=== PATIENT | female | born 1955 | race Caucasian/White ===

== ENCOUNTER 2021-05-29 11:00 | Inpatient (IN) | payer BC ==
[~2021-05-29] VITALS: Ht 165.1 cm; Wt 83.9 kg
[2021-05-29 10:58] LABS: BASOPHILS % (AUTO) 0.4 % (0.0-5.0); EOSINOPHILS % (AUTO) 1.6 % (0.0-8.0); HEMATOCRIT 47.6 % (36-48); LYMPHOCYTES % (AUTO) 17.2 % (21.0-51.0); MEAN CORPUSCULAR HEMOGLOBIN 28.3 pg (27.0-33.0); MEAN CORPUSCULAR HGB CONC 32.1 g/dL (32.0-36.0); MONOCYTES % (AUTO) 8.4 % (3.0-13.0); NEUTROPHILS % (AUTO) 72.2 % (40.0-77.0); PLATELET COUNT (AUTO) 297 K/uL (130-400); RED BLOOD CELL COUNT(AUTO) 5.41 MIL/uL (4.00-5.50); RED CELL DISTRIBUTION WIDTH 13.1 % (11.0-15.5); WHITE BLOOD COUNT (AUTO) 9.6 K/uL (4.8-10.8)
[2021-05-29 11:01] LABS: APPEARANCE,URINE Clear (CLEAR); BILIRUBIN,URINE Negative (NEGATIVE); COLOR,URINE Yellow (YELLOW); GLUCOSE, URINE (UA) Negative (NEGATIVE); KETONES,URINE Negative (NEGATIVE); LEUKOCYTE ESTERASE ,URINE Negative (NEGATIVE); NITRATE,URINE Negative (NEGATIVE); OCCULT BLOOD,URINE Negative (NEGATIVE); PROTEIN,URINE Negative (NEGATIVE); UROBILINOGEN,URINE 0.2 mg/dL (0.2-1.0)
[2021-05-29 11:15] LABS: CREATININE 0.9 mg/dL (0.5-1.5); POTASSIUM 3.8 mmol/L (3.5-5.1)
[2021-05-29 11:39] LABS: INR 1.04 (0.85-1.15); PROTHROMBIN TIME 11.3 SEC (9.6-11.6)
[2021-05-30 14:24] VITALS: BP 140/85
[2021-05-30] MEDS ORDERED: GLUC-252 PO (15:12)
[2021-05-30] MEDS ORDERED: CALC1TAB2 PO (15:12)
[2021-05-30] MEDS ORDERED: EXEMESTANE PO (15:12)
[2021-05-30] MEDS ORDERED: LOSA1TAB54 PO (15:12)
[2021-05-30] MEDS ORDERED: LORA10TA60 PO (15:12)
[2021-05-30] MEDS ORDERED: HYDR-4060 PO (15:12)
[2021-05-30] MEDS ORDERED: FOLI0.8T3 PO (15:12)
[2021-05-30] MEDS ORDERED: MONT10TA21 PO (15:12)
[2021-05-31] VITALS (23 sets, daily range): BP systolic 127–163; BP diastolic 76–106
[2021-05-31] MEDS ORDERED: CEFAZOLIN SODIUM 1 GM VIAL ONE (07:32)
[2021-05-31] MEDS ORDERED: TRANEXAMIC ACID 1000MG/10ML ONE ×2 (07:33→12:57)
[2021-05-31] MEDS: CEFAZOLIN SODIUM 1 GM VIAL ONE ×2 (08:00→09:32)
[2021-05-31] MEDS ORDERED: LIDOCAINE PF 100MG/5ML (2%) SYRINGE 5ML ONE (08:36)
[2021-05-31] MEDS ORDERED: SUCCINYLCHOLINE 200MG/10ML SYR ONE (08:36)
[2021-05-31] MEDS ORDERED: SUCCINYLCHOLINE CHLORIDE 20 MG/ML 10 ML VIAL ONE (08:36)
[2021-05-31] MEDS ORDERED: ROCURONIUM 10MG/1ML SYR 10 MG/ML ML ONE ×2 (08:38→09:42)
[2021-05-31] MEDS ORDERED: NEOSTIGMINE 5MG/5ML SYR IV ONE ×2 (08:38→12:59)
[2021-05-31] MEDS ORDERED: MIDAZOLAM HCL 1 MG/ML 2ML VIAL ONE ×2 (08:38→08:40)
[2021-05-31] MEDS ORDERED: ONDANSETRON 4MG INJ ONE (08:38)
[2021-05-31] MEDS ORDERED: DEXAMETHASONE SOD PHOSPHATE 10MG/ML 1ML VIAL ONE (08:38)
[2021-05-31] MEDS ORDERED: GLYCOPYRROLATE 1 MG/5 ML SYRINGE ONE ×2 (08:38→12:59)
[2021-05-31] MEDS ORDERED: PROPOFOL 10 MG/ML 20ML VIAL IV ONE (08:38)
[2021-05-31] MEDS ORDERED: FENTANYL CITRATE PF 50 MCG/1 ML 2ML VIAL ONE (08:38)
[2021-05-31] MEDS ORDERED: ROPIVACAINE 0.5% 5MG/ML 30ML IJ ONE (08:42)
[2021-05-31] MEDS ORDERED: KETAMINE 50MG/ML SYRINGE 50 MG/ML DISP.SYRIN IV ONE (08:46)
[2021-05-31] MEDS ORDERED: LACTATED RINGERS 1000ML 1,000 ML IV ONE (09:21)
[2021-05-31] MEDS ORDERED: FENTANYL CITRATE PF 50 MCG/1 ML 5ML AMP IV ONE (09:43)
[2021-05-31] MEDS ORDERED: PHENYLEPHRINE HCL 10 MG/ML 1ML VIAL IV ONE (09:51)
[2021-05-31] MEDS ORDERED: CEFAZOLIN SODIUM 1 GM VIAL IRRIG ONE (10:05)
[2021-05-31] MEDS ORDERED: LIDOCAINE HCL-MPF 1% 2ML VIAL IV PRN (13:00)
[2021-05-31] MEDS ORDERED: POTASSIUM CHLORIDE 20MEQ/100ML 100 ML IV PRN (13:00)
[2021-05-31] MEDS ORDERED: TRAMADOL HCL 50 MG TABLET PO PRN (13:00)
[2021-05-31] MEDS ORDERED: DiphenhydrAMINE HCL 50 MG/ML VIAL IVP PRN (13:00)
[2021-05-31] MEDS ORDERED: POTASSIUM CHLORIDE 10% ELIXIR 20 MEQ/15 ML UDCUP PO PRN (13:00)
[2021-05-31] MEDS ORDERED: ONDANSETRON 4MG INJ IVP PRN (13:00)
[2021-05-31] MEDS ORDERED: CALCIUM CARB 500MG PO PRN (13:00)
[2021-05-31] MEDS ORDERED: KETOROLAC 15MG/ML VIAL (15MG/ML) IV PRN (13:00)
[2021-05-31] MEDS ORDERED: FERROUS FUMARATE 324 MG TABLET PO PRN (13:00)
[2021-05-31] MEDS: 0.9%NACL 1000ML 1,000 ML IV SCH ×2 (13:00→23:00)
[2021-05-31] MEDS ORDERED: KCL 20 MEQ ERTAB PO PRN (13:00)
[2021-05-31] MEDS: ACETAMINOPHEN 500 MG TABLET PO SCH ×2 (13:00→20:44)
[2021-05-31] MEDS ORDERED: TEMAZEPAM 15 MG CAPSULE PO PRN (13:00)
[2021-05-31] MEDS ORDERED: OXYCODONE HCL 5 MG TAB PO PRN ×2 (13:00)
[2021-05-31] MEDS ORDERED: MEPERIDINE-PF 25 MG/ML SYG ONE ×2 (13:31→13:45)
[2021-05-31] MEDS ORDERED: ARTIFICAL TEARS SOL 15 ML OU PRN (15:00)
[2021-05-31] MEDS ORDERED: HYDROMORPHONE PCA 10 MG/50 ML 50 ML IV PRN (16:00)
[2021-05-31] MEDS: CEFAZOLIN SODIUM 1 GM VIAL IVP SCH (18:00)
[2021-05-31] MEDS: PREGABALIN 25 MG CAP PO SCH (20:44)
[2021-05-31] MEDS: FAMOTIDINE 20MG TAB PO SCH (20:45)
[2021-05-31] MEDS: ASPIRIN 81 MG EC TAB PO SCH (20:45)
[2021-05-31] MEDS: CELECOXIB 200 MG CAP PO SCH (20:45)
[2021-06-01] VITALS: BP 122/80
[2021-06-01] MEDS ORDERED: CEFAZOLIN SODIUM 1 GM VIAL ONE (03:02)
[2021-06-01] MEDS: CEFAZOLIN SODIUM 1 GM VIAL IVP SCH (03:06)
[2021-06-01 04:00] VITALS: BP 131/77
[2021-06-01 04:22] LABS: HEMATOCRIT 33.9 % (36-48); MEAN CORPUSCULAR HEMOGLOBIN 28.4 pg (27.0-33.0); MEAN CORPUSCULAR HGB CONC 32.2 g/dL (32.0-36.0); MEAN CORPUSCULAR VOLUME 88.3 fL (79-99); RED BLOOD CELL COUNT(AUTO) 3.84 MIL/uL (4.00-5.50); RED CELL DISTRIBUTION WIDTH 13.4 % (11.0-15.5); WHITE BLOOD COUNT (AUTO) 14.8 K/uL (4.8-10.8)
[2021-06-01 04:36] LABS: CREATININE 0.9 mg/dL (0.5-1.5); POTASSIUM 4.3 mmol/L (3.5-5.1)
[2021-06-01] MEDS: ACETAMINOPHEN 500 MG TABLET PO SCH ×2 (05:00→13:00)
[2021-06-01 07:30] VITALS: BP 148/83
[2021-06-01] MEDS: FAMOTIDINE 20MG TAB PO SCH (08:33)
[2021-06-01] MEDS: CELECOXIB 200 MG CAP PO SCH (08:34)
[2021-06-01] MEDS: PREGABALIN 25 MG CAP PO SCH (08:34)
[2021-06-01] MEDS: ASPIRIN 81 MG EC TAB PO SCH (08:35)
[2021-06-01] MEDS: 0.9%NACL 1000ML 1,000 ML IV SCH (08:36)
[2021-06-01] MEDS ORDERED: POLYETHYLENE GLYCOL 3350 17 GM POWD.PACK PO SCH (09:00)
[2021-06-01 11:00] VITALS: BP 140/75
[2021-06-01 16:00] VITALS: BP 133/79
[2021-06-01] MEDS ORDERED: AEC81 PO (17:01)
[2021-06-01] MEDS ORDERED: HYDR-4060 PO (17:01)
[2021-06-03] MEDS ORDERED: BISACODYL 10 MG SUPP.RECT RC PRN (13:00)
== END 2021-06-01 19:00 | disposition home health service (06) | DRG 470 ==
LOC: EDSTATUS 11:00 → DAHIP 05-31 06:08 → 4AH 05-31 14:28
PROVIDERS: ADMIT Orthopaedic Surgery; ATTEND Orthopaedic Surgery
PROC: 0SRB04A Replacement of Left Hip Joint with Ceramic on Polyethylene Synthetic Substitute, Uncemented, Open Approach (ICD-10-PCS; principal; 2021-05-31 08:53)
DX: M16.12 Unilateral primary osteoarthritis, left hip (principal); M87.052 Idiopathic aseptic necrosis of left femur; M21.752 Unequal limb length (acquired), left femur; R26.89 Other abnormalities of gait and mobility; I10 Essential (primary) hypertension; J45.909 Unspecified asthma, uncomplicated; G89.29 Other chronic pain; Z20.822 Contact with and (suspected) exposure to COVID-19; D64.9 Anemia, unspecified; Z85.3 Personal history of malignant neoplasm of breast; Z82.49 Family history of ischemic heart disease and other diseases of the circulatory system
CPT/HCPCS: 36415; 73503; 80048; 81003; 85025; 85027; 85610; 87088; 87635; 87641; 97039; C1776; G0378; J0330; J0690; J1100; J1170; J1885; J2001; J2175; J2250; J2370; J2405; J2704; J2710; J2795; J3010; J3490; J7030; J7120

== ENCOUNTER 2023-10-31 15:55 | Observation (INO) | payer BC ==
[~2023-10-31] VITALS: Ht 162.6 cm; Wt 77.7 kg
[~2023-10-31 15:55] MED LIST: AEC81 PO; CALC1TAB2 PO; EXEMESTANE PO; FOLI0.8T3 PO; GLUC-252 PO; HYDR-4060 PO; LORA10TA60 PO; LOSA1TAB54 PO; MONT-46 PO
[2023-10-31 16:26] LABS: BASOPHILS # (AUTO) 0.04 K/uL (0.00-0.20); BASOPHILS % (AUTO) 0.2 % (0.0-5.0); EOSINOPHILS # (AUTO) 0.01 K/uL (0.00-0.70); EOSINOPHILS % (AUTO) 0.1 % (0.0-8.0); HEMATOCRIT 44.7 % (36-48); IMMATURE GRANULOCYTE ABSOLUTE 0.07 K/uL (0-1); LYMPHOCYTES # (AUTO) 0.6 K/uL (1.0-4.8); LYMPHOCYTES % (AUTO) 3.2 % (21.0-51.0); MEAN CORPUSCULAR HEMOGLOBIN 29.1 pg (27.0-33.0); MEAN CORPUSCULAR HGB CONC 34.2 g/dL (32.0-36.0); MEAN CORPUSCULAR VOLUME 85.1 fL (79-99); MONOCYTES % (AUTO) 5.4 % (3.0-13.0); NEUTROPHILS # (AUTO) 16.3 K/uL (1.8-7.7); NEUTROPHILS % (AUTO) 90.7 % (40.0-77.0); PLATELET COUNT (AUTO) 248 K/uL (130-400); RED BLOOD CELL COUNT(AUTO) 5.25 MIL/uL (4.00-5.50); RED CELL DISTRIBUTION WIDTH 13.5 % (11.0-15.5)
[2023-10-31] MEDS: ZOSYN 3.375GM +NS 50ML IVPB ONE (16:34)
[2023-10-31] MEDS: 0.9%NACL 1000ML 1,000 ML IV ONE (16:34)
[2023-10-31 16:50] LABS: BILIRUBIN,TOTAL 1.2 mg/dL (0.2-1.0); CREATININE 0.7 mg/dL (0.5-1.0); TOTAL PROTEIN, SERUM 7.9 g/dL (6.0-8.3)
[2023-10-31 17:02] LABS: PROTHROMBIN TIME 11.8 SEC (9.6-11.6)
[2023-10-31 17:11] LABS: POTASSIUM 2.9 mmol/L (3.5-5.1)
[2023-10-31 18:08] LABS: APPEARANCE,URINE CLEAR (CLEAR); BILIRUBIN,URINE NEGATIVE (NEGATIVE); COLOR,URINE YELLOW (YELLOW); GLUCOSE, URINE (UA) NEGATIVE (NEGATIVE); KETONES,URINE 60 mg/dL (NEGATIVE); LEUKOCYTE ESTERASE ,URINE NEGATIVE Leu/uL (NEGATIVE); NITRATE,URINE NEGATIVE (NEGATIVE); OCCULT BLOOD,URINE NEGATIVE (NEGATIVE); PROTEIN,URINE NEGATIVE (NEGATIVE); UROBILINOGEN,URINE 0.2 mg/dL (0.2-1.0)
[2023-10-31 18:10] LABS: ADD UA MICROSCOPIC YES
[2023-10-31 18:12] LABS: SQUAMOUS EPITHELIAL CELL,UR RARE /HPF (0-2); WBC,URINE 0-1 /HPF (0-1)
[2023-10-31] MEDS: POTASSIUM BICARB/CIT AC 25 MEQ TABLET.EFF PO ONE (19:49)
[2023-10-31] MEDS ORDERED: HYDROMORPHONE 0.5 MG SYG (0.5MG/0.5ML) IVP PRN (20:30)
[2023-10-31] MEDS ORDERED: ONDANSETRON 4MG INJ IVP PRN (20:30)
[2023-10-31] MEDS: DEXTROSE 5 %-0.45 % NACL 1,000 ML IV SCH (20:59)
[2023-11-01 00:25] VITALS: BP 130/80; PULSE 99; RESP 17; O2SAT 98
[2023-11-01 03:31] VITALS: BP 114/63; PULSE 94; RESP 17
[2023-11-01 04:51] LABS: BASOPHILS # (AUTO) 0.04 K/uL (0.00-0.20); BASOPHILS % (AUTO) 0.3 % (0.0-5.0); EOSINOPHILS # (AUTO) 0.13 K/uL (0.00-0.70); HEMATOCRIT 39.5 % (36-48); IMMATURE GRANULOCYTE ABSOLUTE 0.05 K/uL (0-1); LYMPHOCYTES # (AUTO) 1.4 K/uL (1.0-4.8); LYMPHOCYTES % (AUTO) 10.7 % (21.0-51.0); MEAN CORPUSCULAR HEMOGLOBIN 29.3 pg (27.0-33.0); MEAN CORPUSCULAR HGB CONC 33.9 g/dL (32.0-36.0); MEAN CORPUSCULAR VOLUME 86.4 fL (79-99); MONOCYTES % (AUTO) 7.2 % (3.0-13.0); NEUTROPHILS # (AUTO) 10.8 K/uL (1.8-7.7); NEUTROPHILS % (AUTO) 80.4 % (40.0-77.0); PLATELET COUNT (AUTO) 233 K/uL (130-400); RED BLOOD CELL COUNT(AUTO) 4.57 MIL/uL (4.00-5.50); RED CELL DISTRIBUTION WIDTH 13.8 % (11.0-15.5); WHITE BLOOD COUNT (AUTO) 13.4 K/uL (4.8-10.8)
[2023-11-01] MEDS: ZOSYN 3.375GM +NS 50ML IVPB SCH (05:05)
[2023-11-01 05:13] LABS: ALBUMIN 3.1 g/dL (3.5-5.0); BILIRUBIN,TOTAL 1.2 mg/dL (0.2-1.0); CREATININE 0.8 mg/dL (0.5-1.0); TOTAL PROTEIN, SERUM 6.5 g/dL (6.0-8.3)
[2023-11-01 06:15] LABS: POTASSIUM 2.8 mmol/L (3.5-5.1)
[2023-11-01] MEDS ORDERED: POTASSIUM CHLORIDE 20MEQ/100ML 100 ML IV PRN ×2 (07:00)
[2023-11-01] MEDS: KCL 20 MEQ ERTAB PO ONE (07:42)
[2023-11-01 07:48] VITALS: BP 123/76; PULSE 89; RESP 16
[2023-11-01 09:10] VITALS: O2SAT 98
[2023-11-01] MEDS: POTASSIUM CHLORIDE 10% ELIXIR 20 MEQ/15 ML UDCUP PO PRN (11:22)
[2023-11-01] MEDS: KCL 20 MEQ ERTAB PO PRN (11:22)
[2023-11-01 11:42] VITALS: BP 130/85; PULSE 89; RESP 16
== END 2023-11-01 16:00 | disposition home or self-care (01) ==
LOC: EDH 15:55 → EDHIP 20:16 → 4BH 21:30
PROVIDERS: ADMIT Internal Medicine; ATTEND Internal Medicine
DX: D72.829 Elevated white blood cell count, unspecified (principal); K44.9 Diaphragmatic hernia without obstruction or gangrene; J45.909 Unspecified asthma, uncomplicated; I10 Essential (primary) hypertension; D25.9 Leiomyoma of uterus, unspecified; R65.10 Systemic inflammatory response syndrome (SIRS) of non-infectious origin without acute organ dysfunction; Z85.3 Personal history of malignant neoplasm of breast; Z96.642 Presence of left artificial hip joint; Z79.899 Other long term (current) drug therapy
CPT/HCPCS: 96361 ×2; 96365; 96366 ×2; 84484; 80053 ×2; 83690; 85025 ×2; 85610; 85730; 87040 ×2; 83605; 81001; 36415 ×2; 71045; 74176; 99291; 93005; G0378 ×20; J7030; J2543 ×3